=== PATIENT | male | born 2000 | race African-American/Black ===

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

== ENCOUNTER 2023-03-31 10:40 | Emergency (ER) | payer OTHER ==
[2023-03-31] MEDS ORDERED: predniSONE 20 MG TAB ONE (13:58)
[2023-03-31] MEDS ORDERED: Ibuprofen 200 MG TAB ONE (13:58)
== END 2023-03-31 14:27 | disposition home or self-care (01) ==
LOC: CSHERS 10:40
DX: J02.9 Acute pharyngitis, unspecified (principal)
CPT/HCPCS: 87081; 87430; 99283; J7512